=== PATIENT | female | born 1985 | race Caucasian/White ===

== ENCOUNTER 2019-09-01 14:38 | Emergency (ER) | payer BC ==
[~2019-09-01] VITALS: Ht 175.3 cm; Wt 90.7 kg
[2019-09-01] MEDS ORDERED: SPIRONOLACTONE25 MG PO (14:55)
[2019-09-01 15:51] VITALS: BP 127/86
== END 2019-09-01 15:51 | disposition home or self-care (01) ==
LOC: ER 14:38
DX: S61.512A Laceration without foreign body of left wrist, initial encounter (principal); W45.8XXA Other foreign body or object entering through skin, initial encounter; Y93.89 Activity, other specified; Y92.89 Other specified places as the place of occurrence of the external cause; Y99.8 Other external cause status; Z88.0 Allergy status to penicillin

== ENCOUNTER → 2020-02-04 | Outpatient (CLI) | payer BC ==
[~2020-02-04] MED LIST: SPIRONOLACTONE25 MG PO
== END ==
LOC: LAB 09:24
PROVIDERS: ATTEND Nurse Practitioner
DX: Z20.828 Contact with and (suspected) exposure to other viral communicable diseases (principal)

== ENCOUNTER → 2020-03-24 | Outpatient (CLI) | payer BC | LOC: RAD 16:20 | PROVIDERS: ATTEND Nurse Practitioner | DX: M54.31 Sciatica, right side (principal) ==

== ENCOUNTER → 2020-11-04 | Outpatient (CLI) | payer BC | LOC: SJCVCIMAG 07:55 | PROVIDERS: ATTEND Internal Medicine Cardiovascular Disease | DX: I34.0 Nonrheumatic mitral (valve) insufficiency (principal); R00.2 Palpitations ==

== ENCOUNTER → 2021-01-20 | Outpatient (CLI) | payer BC | LOC: RAD 16:37 | PROVIDERS: ATTEND Nurse Practitioner | DX: S93.602A Unspecified sprain of left foot, initial encounter (principal); X58.XXXA Exposure to other specified factors, initial encounter; Y92.89 Other specified places as the place of occurrence of the external cause; Y93.89 Activity, other specified; Y99.8 Other external cause status ==